=== PATIENT | female | born 1980 | race Caucasian/White ===

== ENCOUNTER → 2019-07-08 | Outpatient (CLI) | payer OTHER ==
--- NOTE | 2019-07-08 17:00 | RAD ---
DATE: 07/08/2019. EXAM: US GUID NDL PLACE/ASPI/BX, DIGITAL DIAGNOSTIC RT. HISTORY: Right upper-outer breast mass. Biopsy is requested. COMPARISON: 05/28/2019. 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 She agreed to proceed. A timeout procedure was performed. The lesion of concern within the right upper outer breast was seen at the heart position 5 cm from the nipple and measures 10 x 7 mm. The overlying skin was sterilely prepped and infiltrated with 1% lidocaine for local anesthesia. Under ultrasound guidance, 4 14-gauge core needle specimens were obtained. A postbiopsy clip was placed under ultrasound guidance. Instrumentation was withdrawn and a sterile dressing placed. There were no immediate applications. Digital images of the right breast were obtained in CC and MLO projections and interpreted in combination a dedicated workstation. The postbiopsy clip corresponds with the site of the target lesion which is otherwise not well-seen mammographically. IMPRESSION: 1. Successful ultrasound-guided biopsy of the right upper outer breast lesion. 2. The postsurgical corresponds with the site of the targeted mass.
--- NOTE | 2019-07-09 17:06 | PATHOLOGY ---
[facility] Accession Number: [id number] . 01 Material submitted: . breast - RIGHT BREAST MASS 10:00. Modifiers: right, 10:00 . 01 Clinical history: . rt breast mass . 02 Diagnosis: Breast tissue, right breast mass 10:00, needle biopsies: - Stromal fibrosis with focal fibroadenomatous change. . (JPM:mm; 07/09/2019) [facility] 07/09/2019 1418 Local . 02 Comment: There is no evidence of malignancy. . (JPM:mm; 07/09/2019) . 02 Electronically signed: . Arturo Farmer MD, Pathologist NPI- [id number] . 01 Gross description: . The specimen is received in formalin, labeled "Hamida Bergeron, right breast 10:00" and consists of 5 needle cores of pink-hilario to yellow breast tissue measuring between 0.4 cm and 0.9 cm in length and 0.2 cm each in diameter. They are entirely submitted in A1-A3. The specimen was obtained at 12:07 PM (per problem specimen form) and placed in formalin at 12:11 PM. The cold ischemic time is greater than 6 hours but less than 72 hours. (SDY; 07/08/2019) SYU/SYU 07/08/2019 1507 Local . 02 Pathologist provided ICD-10: N60.31 . 02 CPT . 733275 Specimen Comment: A courtesy copy of this report has been sent to [phone], [phone] Specimen Comment: [id number] Specimen Comment: Report sent to and Performed at: 01 [facility] [address] [place] [address] [address], [place] [id number] MD Baltazar Mark MD Phone: [phone] Performed at: [address] [id number] MD Arturo Farmer MD Phone: [phone]
== END | disposition home or self-care (01) ==
LOC: US 10:58
PROVIDERS: ATTEND Family Medicine
DX: N60.31 Fibrosclerosis of right breast (principal); D24.1 Benign neoplasm of right breast
CPT/HCPCS: 19083; 77065; 88305; C1713; 19081; 76942